=== PATIENT | female | born 1970 | race Caucasian/White ===

== ENCOUNTER 2021-01-25 16:15 | Outpatient (CLI) | payer BC | END 2021-01-25 16:16 | disposition home or self-care (01) | LOC: BICMAMMO 16:15 | PROVIDERS: ATTEND Family Medicine | DX: Z12.31 Encounter for screening mammogram for malignant neoplasm of breast (principal); Z80.3 Family history of malignant neoplasm of breast | CPT/HCPCS: 77063; 77067 ==

== ENCOUNTER 2023-02-04 13:22 | Outpatient (CLI) | payer BC | END 2023-02-04 13:23 | disposition home or self-care (01) | LOC: BICMAMMO 13:22 | PROVIDERS: ATTEND Nurse Practitioner | DX: Z12.31 Encounter for screening mammogram for malignant neoplasm of breast (principal) | CPT/HCPCS: 77063; 77067 ==